=== PATIENT | female | born 1990 | race Two or more races ===

== ENCOUNTER 2021-10-06 10:17 | Inpatient (IN) | payer BC ==
[2021-10-06] MEDS ORDERED: Sodium Chloride 0.9% 2.5 ML Syringe FLUSH PRN (11:27)
[2021-10-06] MEDS ORDERED: Sodium Chloride 0.9% 10 ML Syringe FLUSH PRN (11:27)
[2021-10-06] MEDS ORDERED: Sodium Chloride 0.9% 20 ML SDV IV PRN (11:27)
[2021-10-06] MEDS ORDERED: Methylergonovine 0.2 MG/1 ML Amp IM PRN (11:27)
[2021-10-06] MEDS ORDERED: Misoprostol 200 MCG Tab PO PRN (11:27)
[2021-10-06] MEDS ORDERED: Terbutaline 1 MG/ML SDV SUBCUT PRN (11:27)
[2021-10-06] MEDS ORDERED: Tranexamic Acid 1,000 MG in Sodium Chloride 0.9% 100 ML IV PRN (11:27)
[2021-10-06] MEDS ORDERED: Carboprost Tromethamine 250 MCG/1 ML Amp IM PRN (11:27)
[2021-10-06] MEDS ORDERED: Water For Irrigation,Sterile 1,000 ML Container IRR PRN (11:27)
[2021-10-06] MEDS ORDERED: Butorphanol 1 MG/ML SDV IVPUSH PRN (11:27)
[2021-10-06] MEDS ORDERED: Lidocaine 1% 50 ML MDV INJECT PRN (11:27)
[2021-10-06] MEDS ORDERED: Ondansetron 4 MG/2 ML SDV IVPUSH PRN (11:27)
[2021-10-06] MEDS ORDERED: Oxytocin/0.9 % Sodium Chloride 30 UNIT/500 ML BAG IV SCH ×2 (11:30)
[2021-10-06] MEDS ORDERED: ePHEDrine 50 MG/ML SDV IVPUSH PRN ×2 (11:40)
[2021-10-06] MEDS ORDERED: Phenylephrine HCl In 0.9% NaCl 1 MG/10 ML Vial IVPUSH SCH (11:45)
[2021-10-06] MEDS ORDERED: Ropivacaine HCl/PF 400 MG in Premix Bag 1 BAG EPIDUR SCH (11:45)
[2021-10-06] MEDS: Lactated Ringers 1,000 ML IV SCH ×3 (11:51→19:15)
[2021-10-06] MEDS ORDERED: Misoprostol 25 MCG (1/4 of 100 MCG) Tab VAG PRN ×2 (12:00→16:00)
[2021-10-06] MEDS: Vancomycin 1.75 GM in Sodium Chloride 0.9% 500 ML IV SCH ×2 (12:40→20:39)
[2021-10-06] MEDS ORDERED: Lanolin 100% Cream 7 GM Tube TOP PRN (22:53)
[2021-10-06] MEDS ORDERED: Acetaminophen 500 MG Tab PO PRN (22:53)
[2021-10-06] MEDS ORDERED: Bisacodyl 10 MG Supp RECTAL PRN (22:53)
[2021-10-06] MEDS ORDERED: Benzocaine/Menthol 20%-0.5% Spray 78 GM Cannister TOP PRN (22:53)
[2021-10-06] MEDS ORDERED: Witch Hazel Medicated Pads 40/Jar TOP PRN (22:53)
[2021-10-06] MEDS ORDERED: Ibuprofen 800 MG Tab PO PRN (22:53)
[2021-10-06] MEDS ORDERED: oxyCODONE 5 MG Tab PO PRN (22:53)
[2021-10-06] MEDS ORDERED: Ibuprofen 400 MG Tab PO PRN (22:53)
[2021-10-06] MEDS ORDERED: Docusate Sodium 100 MG Cap PO PRN (22:53)
[2021-10-07] MEDS: Acetaminophen 500 MG Tab PO PRN ×2 (02:58→23:36)
[2021-10-08 07:50] VITALS: BP 115/92; PULSE 88
== END 2021-10-08 11:35 | disposition home or self-care (01) | DRG 560 ==
LOC: MW.OBCHECK 10:17 → MW.OB 10:36 → OBSVTOIN 21:57 → MW.OB 10-07 02:44
PROVIDERS: ADMIT Obstetrics & Gynecology; ATTEND Obstetrics & Gynecology
PROC: 10E0XZZ Delivery of Products of Conception, External Approach (ICD-10-PCS; principal; 2021-10-06)
PROC: 3E0P7VZ Introduction of Hormone into Female Reproductive, Via Natural or Artificial Opening (ICD-10-PCS; 2021-10-07)
PROC: 3E0R3BZ Introduction of Anesthetic Agent into Spinal Canal, Percutaneous Approach (ICD-10-PCS; 2021-10-07)
PROC: 0UQMXZZ Repair Vulva, External Approach (ICD-10-PCS; 2021-10-07)
DX: O42.02 Full-term premature rupture of membranes, onset of labor within 24 hours of rupture (principal); O48.0 Post-term pregnancy; O99.824 Streptococcus B carrier state complicating childbirth; O99.284 Endocrine, nutritional and metabolic diseases complicating childbirth; E03.9 Hypothyroidism, unspecified; O98.52 Other viral diseases complicating childbirth; U07.1 COVID-19; O77.0 Labor and delivery complicated by meconium in amniotic fluid; O76 Abnormality in fetal heart rate and rhythm complicating labor and delivery; O71.82 Other specified trauma to perineum and vulva; O69.1XX0 Labor and delivery complicated by cord around neck, with compression, not applicable or unspecified; Z3A.40 40 weeks gestation of pregnancy; Z37.0 Single live birth; Z88.0 Allergy status to penicillin; Z88.1 Allergy status to other antibiotic agents; Z79.899 Other long term (current) drug therapy; Z79.890 Hormone replacement therapy
CPT/HCPCS: 01967; 36415; 51702; 59025; 59409; 84112; 85014; 85018; 85027; 86592; 86850; 86900; 86901; A9270-GY; J2590; J3370; J7040; J7120; U0002

== ENCOUNTER 2024-06-19 05:03 | Inpatient (IN) | payer BC ==
[2024-06-19] MEDS ORDERED: Carboprost Tromethamine 250 MCG/1 mL Vial IM PRN (05:07)
[2024-06-19] MEDS ORDERED: Misoprostol 200 MCG Tab PO PRN (05:07)
[2024-06-19] MEDS ORDERED: Sodium Chloride 0.9% 2.5 ML Syringe FLUSH PRN (05:07)
[2024-06-19] MEDS ORDERED: Sodium Chloride 0.9% 10 ML Syringe FLUSH PRN (05:07)
[2024-06-19] MEDS ORDERED: Misoprostol 200 MCG Tab RECTAL PRN (05:07)
[2024-06-19] MEDS ORDERED: Ondansetron 4 MG/2 ML SDV IVPUSH PRN (05:07)
[2024-06-19] MEDS ORDERED: Butorphanol 2 MG/ML SDV IVPUSH PRN (05:07)
[2024-06-19] MEDS ORDERED: Sodium Chloride 0.9% 20 ML SDV IV PRN (05:07)
[2024-06-19] MEDS ORDERED: Methylergonovine 0.2 MG/1 ML Amp IM PRN (05:07)
[2024-06-19] MEDS ORDERED: Terbutaline 1 MG/ML SDV SUBCUT PRN (05:07)
[2024-06-19] MEDS ORDERED: Water For Irrigation,Sterile 1,000 ML Container IRR PRN (05:07)
[2024-06-19] MEDS: Lactated Ringers 1,000 ML IV SCH (05:44)
[2024-06-19] MEDS: Oxytocin/0.9 % Sodium Chloride 30 UNIT/500 ML BAG IV SCH ×2 (06:10→15:33)
[2024-06-19 06:20] LABS: HEMATOCRIT 35.3 % (37.0-47.0); HEMOGLOBIN 12.2 g/dL (12.0-16.0); MEAN CORPUSCULAR HGB CONC 34.6 g/dL (32.0-36.0); MEAN CORPUSCULAR VOLUME 86.7 fL (83.0-99.0); MEAN PLATELET VOLUME 10.9 fL (9.4-12.3); PLATELET COUNT,PLT 192 K/uL (150-400); RED BLOOD CELL COUNT 4.07 M/uL (4.10-5.30); WHITE BLOOD CELL COUNT,WBC 11.17 K/uL (3.9-11.3)
[2024-06-19] MEDS: VANCOmycin 1.75 GM in Sodium Chloride 0.9% 500 ML IV SCH (06:20)
[2024-06-19] MEDS: Ropivacaine HCl/PF 400 MG in Premix Bag 1 BAG EPIDUR SCH (10:30)
[2024-06-19] MEDS ORDERED: Phenylephrine HCl In 0.9% NaCl 1 MG/10 ML Syringe IVPUSH PRN (10:49)
[2024-06-19] MEDS ORDERED: ePHEDrine 50 MG/ML SDV IVPUSH PRN (10:49)
[2024-06-19] MEDS ORDERED: dexmedeTOMIDine HCl 200 MCG/2 ML SDV EPIDUR SCH (11:00)
[2024-06-19] MEDS ORDERED: Ropivacaine HCl/PF 200 ML ONE (11:22)
[2024-06-19] MEDS: Lidocaine 1% 50 ML MDV INJECT PRN (15:55)
[2024-06-19] MEDS ORDERED: Witch Hazel Medicated Pads 40/Jar TOP PRN (16:36)
[2024-06-19] MEDS ORDERED: Ibuprofen 800 MG Tab PO PRN (16:36)
[2024-06-19] MEDS ORDERED: Lanolin 100% Cream 7 GM Tube TOP PRN (16:36)
[2024-06-19] MEDS ORDERED: Docusate Sodium 100 MG Cap PO PRN (16:38)
[2024-06-19] MEDS ORDERED: Acetaminophen 500 MG Tab PO PRN (16:38)
[2024-06-19] MEDS ORDERED: Benzocaine/Menthol 20%-0.5% Spray 78 GM Cannister TOP PRN (16:38)
[2024-06-19 16:43] LABS: PH,UMBILICAL ARTERIAL 7.35 (7.18-7.38)
[2024-06-19 16:44] LABS: PH,UMBILICAL VENOUS 7.37 (7.25-7.45)
[2024-06-19] MEDS: Acetaminophen 500 MG Tab PO PRN (18:13)
[2024-06-19] MEDS: Witch Hazel Medicated Pads 40/Jar TOP PRN (18:14)
[2024-06-19] MEDS: Lanolin 100% Cream 7 GM Tube TOP PRN (18:15)
[2024-06-19] MEDS: Benzocaine/Menthol 20%-0.5% Spray 78 GM Cannister TOP PRN (18:15)
[2024-06-19] MEDS: Docusate Sodium 100 MG Cap PO PRN (22:30)
[2024-06-19] MEDS: Ibuprofen 800 MG Tab PO PRN (22:30)
[2024-06-20 05:40] LABS: HEMATOCRIT 34.4 % (37.0-47.0); HEMOGLOBIN 11.6 g/dL (12.0-16.0)
[2024-06-21 08:40] VITALS: BP 136/93; PULSE 66
== END 2024-06-21 10:40 | disposition home or self-care (01) | DRG 560 ==
LOC: MW.OBCHECK 05:03 → MW.OB 05:05 → MW.OBCHECK 05:07 → OBSVTOIN 05:07 → MW.OB 05:07
PROVIDERS: ADMIT Obstetrics & Gynecology Gynecology; ATTEND Obstetrics & Gynecology
PROC: 10E0XZZ Delivery of Products of Conception, External Approach (ICD-10-PCS; principal; 2024-06-19)
PROC: 3E0P7VZ Introduction of Hormone into Female Reproductive, Via Natural or Artificial Opening (ICD-10-PCS; 2024-06-19)
PROC: 0KQM0ZZ Repair Perineum Muscle, Open Approach (ICD-10-PCS; 2024-06-19)
PROC: 10D17Z9 Manual Extraction of Products of Conception, Retained, Via Natural or Artificial Opening (ICD-10-PCS; 2024-06-19)
PROC: 3E0R3BZ Introduction of Anesthetic Agent into Spinal Canal, Percutaneous Approach (ICD-10-PCS; 2024-06-19)
PROC: 00HU33Z Insertion of Infusion Device into Spinal Canal, Percutaneous Approach (ICD-10-PCS; 2024-06-19)
DX: O99.284 Endocrine, nutritional and metabolic diseases complicating childbirth (principal); Z37.0 Single live birth; E03.9 Hypothyroidism, unspecified; O99.824 Streptococcus B carrier state complicating childbirth; O99.02 Anemia complicating childbirth; D64.89 Other specified anemias; O70.1 Second degree perineal laceration during delivery; Z88.8 Allergy status to other drugs, medicaments and biological substances; Z88.0 Allergy status to penicillin; Z86.16 Personal history of COVID-19; Z90.89 Acquired absence of other organs; Z98.890 Other specified postprocedural states
CPT/HCPCS: 01967; 36415; 51701; 51702; 59025; 59409; 82803; 85014; 85018; 85027; 86592; 86850; 86900; 86901; A9270-GY; J2003; J2590; J2795; J7040; J7120